=== PATIENT | male | born 1990 | race Caucasian/White ===

== ENCOUNTER 2023-07-13 08:32 | Outpatient (CLI) | payer OTHER, SELFPAY ==
--- NOTE | 2023-07-30 19:07 | WPDSLEEPSTUD ---
Sleep Study Date of Study: 07/13/23 Ordering Provider: JOSIE Garcia Interpreting Physician: Constanza Hussein MD Sleep Study Type: Polysomnogram Height: 1.73 m Weight: 63.503 kg Body Mass Index: 21.2 Neck Circumference (inches): 15 [place]: 6 Reason for Sleep Study ?insomnia, elevated blood pressure, anxiety Sleep History Clayton Bedolla is a 33-year-old man with difficulties getting to sleep and staying asleep. 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 He lives there a few months and did not have any issues until July when he started to have panic attacks, insomnia and elevated blood pressure. His anxiety is now controlled and he has not had a panic attack for quite some time. Blood pressure is also controlled. However his sleep has not returned to normal. He started buspirone for anxiety but had GI side effects so he quit taking it. He is only sleeping 2-5 hours per night and he is constantly tired. He is currently taking trazodone which helps him get to sleep but he does not stay asleep. He never awakens from sleep feeling short of breath. He never wakes at night with heartburn, belching or coughing.??He never snores, never snores loudly enough that others complain. He frequently has trouble sleeping when he has a cold. He never wakes up gasping for breath during the night. He never has breathing problems at night observed by others. He rarely sweats excessively at night. He rarely notices his heart pounding or beating irregularly during the night. He never falls asleep during the day. He never falls asleep involuntarily, never falls asleep while driving. He never experiences loss of muscle tone with strong emotion. 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 He never feels paralyzed on waking or falling asleep. He never experiences vivid dreams upon waking or falling asleep. He never feels afraid of going to sleep. He never has nightmares. He never recalls his dreams. He frequently has thoughts racing through his mind. He never feels sad or depressed. He frequently feels anxiety. He never notices parts of his body jerk. He never kicks during the night. He never feels crawling or aching feelings in his legs. He never feels leg pain at night. He rarely has morning jaw pain, rarely grinds his teeth at night. He occasional feels bothered by pain during the day, never awakened by pain during the night. He occasionally wakes up feeling stiff in the morning, and he frequently wakes feeling sore or achy. He occasionally awakens with pain in his neck, spine, or joints. Normal bedtime is 9:00 p.m., falling asleep within 15 minutes using trazodone but without trazodone it may take hours for him to fall asleep. He typically wakes once during the night. While awake he may lie in bed and read. Once he awakens at night he is not able to return to sleep. His normal wake time is 5:00 a.m.. He estimates getting between 2 and 5 hours of sleep at night. On weekends, his bedtime is 1 hour later, 9:00 p.m. and his wake time is till 5:00 a.m.. He does not take naps in the afternoon or evening. A short nap is not refreshing. He is usually drowsy for 3 hours after waking. Habits:??Tobacco:never smoker Caffeine: none Alcohol: less than 1 on average per day Recreational substances: none PMFSH Past Medical History Medical History Anxiety Hypertension Surgical History Surgical History H/O wrist surgery History of elbow surgery Family History Family History Grandparent Family history of lung cancer Social History Social History Smoking status: Never smo
[2023-08-02 10:40] VITALS: BMI 21.2
== END 2023-07-14 07:04 | disposition home or self-care (01) ==
LOC: ANHCSM 08:34
PROVIDERS: PCP Internal Medicine; Visit Provider Physician Assistant
DX: G47.9 Sleep disorder, unspecified (principal); G47.10 Hypersomnia, unspecified; F39 Unspecified mood [affective] disorder
CPT/HCPCS: 95810

== ENCOUNTER 2023-10-12 08:20 | Outpatient (CLI) | payer OTHER, SELFPAY ==
--- NOTE | ~2023-10-12 | XR_ITS ---
XR wrist RT min 3V Ordering provider: Alexis Mcdowell MD History: . right forearm/wrist mass and hardware eval, PAIN X 3 YEARS . Comparison: None. FINDINGS: BONES: No acute fracture or dislocation. No definite scaphoid fracture. Postoperative changes in the distal right radius. Old fracture in the styloid process. JOINT SPACES: Normal. SOFT TISSUES: Normal. IMPRESSION: No acute osseous abnormality right wrist. Reviewed, dictated and finalized at location A.
== END 2023-10-12 08:21 | disposition home or self-care (01) ==
LOC: ANHIMG 08:25
PROVIDERS: PCP Internal Medicine; Visit Provider Plastic Surgery
DX: M67.40 Ganglion, unspecified site (principal)
CPT/HCPCS: 73110

== ENCOUNTER 2023-10-21 15:57 | Outpatient (CLI) | payer OTHER, SELFPAY ==
--- NOTE | ~2023-10-21 | US_ITS ---
EXAMINATION: US soft tissue UE RT DATE: 10/21/2023 16:48 INDICATION: eval fright volar wrist mass for ganglion vs other . TECHNIQUE: Grayscale and Doppler ultrasound images of the right] upper extremity soft tissues were ob tained. COMPARISON: None. FINDINGS: The area of clinical concern in the right anterior wrist was sonographically interrogated, revealing no solid or cystic mass. IMPRESSION: No abnormality detected in the area of clinical concern. Reviewed, dictated and finalized at location K.
== END 2023-10-21 15:58 | disposition home or self-care (01) ==
LOC: ANHIMG 15:58
PROVIDERS: PCP Internal Medicine; Visit Provider Plastic Surgery
DX: M67.40 Ganglion, unspecified site (principal)
CPT/HCPCS: 76882

== ENCOUNTER 2023-11-29 14:45 | Outpatient (CLI) | payer OTHER, SELFPAY ==
--- NOTE | ~2023-11-29 | MR_ITS ---
EXAMINATION: MR wrist RT wo/w con DATE: 11/29/2023 15:57 INDICATION: Right wrist mass versus ganglion TECHNIQUE: Magnetic resonance imaging (MRI) of the right wrist was performed without and with 14 mL M ultihance intravenous contrast. Sequences performed include sagittal PD-weighted FSE, axial and sagit paula T1-weighted FSE, axial, sagittal and coronal fluid sensitive FSE STIR, axial T1-weighted FS FSE a nd postcontrast axial, sagittal and coronal T1-weighted FS FSE. COMPARISON: Radiographs dated 10/12/23 and ultrasound dated 10/21/2023 FINDINGS: There is metallic magnetic field artifact associated with volar T plate and screw fixation. This obsc ures the immediately adjacent bone and soft tissues including the scapholunate and lunotriquetral lig aments as well as portion of the triangular fibrocartilage complex. There is mild radial displacement of a chronic nonunited ulnar styloid avulsion fracture fragment. Normal marrow signal. No acute frac ture, erosions, avascular necrosis or pathologic marrow replacing process. Joint spaces are normal. V isualized portion of the flexor and extensor tendons are normal with no evident tendinopathy, tear or associated tenosynovitis. Carpal tunnel and Guyon's canal are unremarkable. The marker indicating th e region of concern is located along the radial/volar side of the wrist and distal most forearm. This immediately overlies the normal-appearing flexor carpi radialis tendon and the median nerve which ar e also seen at the region of concern on the prior ultrasound. No abnormal masses or fluid collections identified. No abnormally enhancing lesions identified however evaluation is limited by poor and het erogeneous fat saturation resulting from the magnetic field artifact. IMPRESSION: 1. No abnormal masses or fluid collections identified at the region of concern which immediately over lies the flexor carpi radialis and median nerve at the distalmost forearm. Evaluation is somewhat burciaga ited by metallic magnetic field artifact related to a prior volar T plate and screw fixation of the d istal radius. 2. Mild radial displacement chronic nonunited ulnar styloid avulsion fracture fragment. Reviewed, dictated and finalized at location A. IMPRESSION: 1. No abnormal masses or fluid collections identified at the region of concern which immediately overlies the flexor carpi radialis and median nerve at the di stalmost forearm. Evaluation is somewhat limited by metallic magnetic field art ifact related to a prior volar T plate and screw fixation of the distal radius. 2. Mild radial displacement chronic nonunited ulnar styloid avulsion fracture f ragment.
== END 2023-11-29 14:46 | disposition home or self-care (01) ==
LOC: MICIMG 14:46
PROVIDERS: PCP Plastic Surgery; Visit Provider Plastic Surgery
DX: M25.831 Other specified joint disorders, right wrist (principal)
CPT/HCPCS: 73223; A9577

== ENCOUNTER 2024-01-13 05:50 | Day surgery (SDC) | payer OTHER, SELFPAY ==
[2024-01-07 10:15] VITALS: BMI 23.4
--- NOTE | ~2024-01-13 | XR_ITS ---
INTRAOPERATIVE FLUOROSCOPY: CLINICAL HISTORY: 33 years old Male; HARDWARE REMOVAL RIGHT RADIUS PROCEDURE COMMENTS: Limited intraoperative fluoroscopy of the right wrist was performed. DOSE AREA PRODUCT: 0.4 Gy-cm2 FLUOROSCOPY TIME: 6 seconds FINDINGS/IMPRESSION: Please refer to operative note for further details. Reviewed, dictated and finalized at location A. E SUPERINTENDENT
[2024-01-13 06:26] VITALS: BMI 24.7
[2024-01-13 06:27] VITALS: BP 142/82; PULSE 65; RESP 16; TEMP 37; O2SAT 100
--- NOTE | 2024-01-13 06:39 | WPDANESEPPF ---
Anes - Initial Pre Proc Eval Procedure: Operation Date: 01/13/24 07:30 Proposed Procedures p Hardware Removal Right Radius - Alexis Mcdowell MD Date/Time: 01/13/24 06:39 Surgeon: Alexis Mcdowell MD Pre Op Diagnosis: History of Fracture Right Radius Patient Data Age: 33 Gender: M Height: 1.73 m Weight: 74 kg Last Vital Signs Temp 37.0 C 01/13/24 06:27 Pulse 65 01/13/24 06:27 Resp 16 01/13/24 06:27 BP 142/82 H 01/13/24 06:27 Pulse Ox 100 01/13/24 06:27 O2 Del Method Room Air 01/13/24 06:27 Allergies Allergy/AdvReac Type Severity Reaction Status Date / Time primaquine AdvReac Intermediate Nausea and Verified 01/13/24 06:16 Vomiting Home Medications Medication Instructions Recorded Confirmed Type No Home Medications 09/14/23 01/13/24 History Patient hx anesthesia problems: none Family hx anesthesia problems: none Results Review: All pre-operative results and documents have been reviewed as part of the pre-operative evaluation. [facility] Past Medical History Medical History (Updated 01/13/24 @ 07:23 by David Matthews DO) Anxiety Panic attack Surgical History Surgical History H/O wrist surgery History of elbow surgery Family History Family History Grandparent Family history of lung cancer Social History Social History Smoking status: Never smoker Second hand tobacco smoke exposure: No Alcohol intake: current Alcohol use details: OCCASSIONAL Substance use: never Substance use type: does not use Lack of Transportation: No Lack of Food: Never True Current Housing: I Have Housing Concerned About Future Housing: No Difficulty Paying Gas/Electric Bills: No Difficulty Paying for Meds: No Currently Unemployed: No Education: Bachelor's Degree Difficulty w/ Childcare or Family Care: No Living arrangements: alone Spiritual care concerns: No Anes - Eval Final PreProcedure Day of Procedure 11/14/24 06:39 Patient weight: normal Heart: regular rate and rhythm Lungs: clear to auscultation and normal air movement Airway: Mallampati scale class II Neurological: alert and oriented Last oral intake: >/= 8 hours ASA classification: II Emergent: no Anesthetic plan: proceed Anesthesia type and monitoring: general GIVS and standard monitoring Results Review: All pre-operative results and documents have been reviewed as part of the pre-operative evaluation. Informed Consent: The patient's anesthetic plan and its attendant risks and benefits were discussed with the patient/family/POA. Questions were solicited and answers provided to the satisfaction of the patient/family/POA.
[2024-01-13] MEDS: LACTATED RINGERS 1,000 ML 30 ML IV CONT (06:43)
--- NOTE | 2024-01-13 07:05 | WPDHPUPDATE1 ---
History and Physical Update Update Date/Time: 01/13/24 07:05 Patient seen and examined in pre-operative holding area. No interval change in medical history or symptoms. Patient recalls previous discussion of benefits and alternatives to procedure. Continues to desire to proceed with removal right distal radius hardware. Reviewed procedure, post-op expectations and risks including but not limited to bleeding, infection, injury to tendon/nerve/vessel, decreased hand function, stiffness, RSD, no change or worsening of symptoms. I discussed the possible use of assistants and their participation in the case. Patient stated understanding and signed the consent form wishing to proceed.
--- NOTE | 2024-01-13 07:05 | W.PM.PROC2 ---
Procedure Note - Detailed Date of Procedure 01/13/24 Pre-op Diagnosis History of Fracture Right Radius Post-op Diagnosis Same Procedure Performed right distal radius hardware removal and scar revision Surgeon Alexis Mcdowell MD Outside Dealer Sales Representative angelita moscoso pa-c Anesthesia MAC Description of Procedure INFORMED CONSENT: The patient was seen and examined and marked in the pre-op area.? The patient signed the consent form. PROCEDURE IN DETAIL:The patient taken back to OR on the stretcher in supine position. Time out performed with anesthesia, surgeon and staff agreeing on patient's name site and surgery to be performed SCDs were placed on the lower extremities and inflated. A tourniquet was placed on {right} upper extremity and antibiotics given IV After anesthesia administered sedation I injected {10}cc 1%lido with epi and 0.5% marcaine plain at the operative site The?{right upper extremity}?was prepped and draped in sterile fashion the??{right upper extremity} was? exsanguinated with Esmarch bandage and tourniquet inflated to 250mmHg I proceeded with making an ellptical incision around the patient's widened atrophic right volar wrist scar through skin and dermis with a 15 blade scalpel. The full-thickness scar was excised sharply. Using Littler scissors I spread down to the FCR tendon. This was retracted ulnarly. I made incision in the floor of the SC are sheath in standard Errol approach. The radial artery was protected and retracted radially throughout the procedure. I proceeded with dissection releasing scar tissue and remnant of pronator quadratus until the distal radius plate was exposed. I completed exposure of the plate and then using the universal hardware set I identified the appropriate screwdriver (synthes) and removed the plate and screws. Confirmation of hardware removal was done with mini C-arm. No masses cysts or significant abnormalities were identified. Tendons appeared normal without fraying and the druj and wrist was stable with full ROM. I irrigated with normal saline. I was unable to repair pronator quadratus given amount of previous scar tissue and retraciton. I excised excess skin on the proximal and distal ends of the incision to remove small dog ears. 3-0 Vicryl was used for dermis. 4-0 Monocryl was used for subcuticular closure. Length of closure was 7cm A dressing of Dermabond, 4x4, elina, and a volar splint was applied for patient safety, security, and comfort and secured with an tomasa bandage after the tourniquet was let down noting the hand was warm and well perfused. The patient was then awaken from anesthesia and transferred to the recovery room in stable condition.? Complications - none EBL- 0cc Disposition - home in stable conditions Angelita Moscoso PA-C was essential for positioning, retraction, fluoro, closure and dressing placement [facility] Billing Surgery - Charge Forward: Surgery Billing ([id number] for angelita)
[2024-01-13] MEDS: ceFAZolin SODIUM 2 GM/20 ML SW SYRINGE IV PUSH (07:27)
[2024-01-13] MEDS: LIDO 1%/EPINEPHRINE 1:100,000 10 ML VIAL 5 ML INFILTRATE (07:56)
[2024-01-13 08:22] VITALS: BP 117/67; PULSE 70; RESP 14; O2SAT 97
[2024-01-13 08:50] VITALS: BP 133/84; PULSE 62; RESP 18; O2SAT 96
[2024-01-13] MEDS: oxyCODONE HCL (*CRX) 5 MG TAB IR PO (08:51)
[2024-01-13 09:20] VITALS: BP 124/88; PULSE 58; RESP 18; O2SAT 97
--- NOTE | 2024-01-13 12:58 | WPDANESPN ---
Anes - Prog Note Post-Op Date/Time: 01/13/24 12:58 Cardiovascular status: normal Respiratory status: normal Airway patency: baseline Mental status: baseline Post-Op hydration status: normal Vital Signs: Last Vital Signs Temp 37.0 C 01/13/24 06:27 Pulse 58 L 01/13/24 09:20 Resp 18 01/13/24 09:20 BP 124/88 01/13/24 09:20 Pulse Ox 97 01/13/24 09:20 O2 Del Method Room Air 01/13/24 09:20 Pain Score (VAS): 1 I/O: Intake & Output 01/12/24 01/13/24 01/13/24 23:59 07:59 15:59 Intake Total 200 Balance 200 Post-procedural complaints: none Patient Feedback: Patient satisfied with anesthetic care. Other Findings: Patient vital signs back to baseline. Patient denies nausea and vomiting. Patient's pain under control. Patient OK for discharge.
== END 2024-01-13 09:45 | disposition home or self-care (01) ==
PROVIDERS: PCP Internal Medicine; Visit Provider Plastic Surgery
PROC: (CPT 25447; principal; 2024-01-13 07:30)
DX: T84.192A Other mechanical complication of internal fixation device of bone of right forearm, initial encounter (principal)
CPT/HCPCS: 20680; 13121; 99199

== ENCOUNTER 2024-01-22 14:21 | Emergency (ER) | payer OTHER, SELFPAY ==
[2024-01-22 14:40] VITALS: BP 124/78; PULSE 72; RESP 18; TEMP 36.8; O2SAT 99
--- NOTE | 2024-01-22 18:19 | ED.SKABFB ---
HPI - Skin/Abscess/Foreign Bdy General Chief complaint: Skin/Abscess/Foreign Body Stated complaint: Rash Time Seen by Provider: 01/22/24 14:48 Source: patient, RN notes reviewed and old records reviewed Mode of arrival: ambulatory Limitations: no limitations History of Present Illness HPI narrative: Patient presents today complaining of fluid-filled bumps and drainage on his right forearm surrounding of a surgical incision site. Patient was taken to the OR for hardware removal and scar revision by Dr. Mcdowell on 01/13/24. Over the past few days, this rash has developed. It is pruritic and draining onto his dressing. Patient has not been able to get a hold of his doctor and wanted to come in today for evaluation. He has not tried any [id number] treatment prior to arrival. Related Data Allergies Allergy/AdvReac Type Severity Reaction Status Date / Time primaquine AdvReac Intermediate Nausea and Verified 01/13/24 06:16 Vomiting Review of Systems Review of Systems: CONSTITUTIONAL: Denies body aches, fever, chills, or sweats. EYES: Denies visual changes, redness, or discharge. ENT: Denies rhinorrhea, congestion, sore throat, or otalgia. CARDIOVASCULAR: Denies chest pain, palpitations, or edema. RESPIRATORY: Denies cough or dyspnea. GASTROINTESTINAL: Denies abdominal pain, nausea, vomiting, or diarrhea. GENITOURINARY: Denies dysuria or hematuria. SKIN: +Pruritic rash with drainage to the right forearm surgical site MUSCULOSKELETAL: Denies back pain, joint pain, or myalgia. NEUROLOGIC: Denies headache, numbness, tingling, or weakness. PSYCH: Denies depression or anxiety. [facility] Past Medical History Medical History Anxiety Panic attack Surgical History Surgical History H/O wrist surgery History of elbow surgery Family History Family History Grandparent Family history of lung cancer Social History Social History Smoking status: Never smoker Second hand tobacco smoke exposure: No Alcohol intake: current Alcohol use details: OCCASSIONAL Substance use: never Substance use type: does not use Lack of Transportation: No Lack of Food: Never True Current Housing: I Have Housing Concerned About Future Housing: No Difficulty Paying Gas/Electric Bills: No Difficulty Paying for Meds: No Currently Unemployed: No Education: Bachelor's Degree Difficulty w/ Childcare or Family Care: No Living arrangements: alone Spiritual care concerns: No Comments At time of signature, I have reviewed and agree with nursing past medical, surgical, social and family history unless otherwise noted. Please see nursing chart for further information. There is no relevant family history pertinent to the presenting complaint Exam Narrative: GENERAL: Well-appearing, well-nourished, and in no acute distress. HEAD: Normocephalic, atraumatic. EYES: EOMI. No redness or drainage. Conjunctivae normal. ENT: Mucous membranes pink and moist. NECK: Normal AROM. CHEST: No respiratory distress. EXTREMITIES: Surgical incision to the volar aspect of the right forearm. Surrounding the incision is erythema that extends proximally, almost to the antecubital fossa. No induration noted. Around the incision there is a large area of tiny vesicles filled with dark yellow fluid with some scant honey crusting. No dehiscence of the wound noted. No purulent discharge from the incision site noted. Distal sensation intact. Capillary refill normal. SKIN: Warm. Capillary refill normal. Normal skin turgor. NEURO: No focal deficits. Alert and oriented x3. Gait steady. PSYCH: Normal affect. No signs of depression or anxiety. Course Course Level of Care: Express Care Visit Vital Signs Vital signs: Vital Signs Temperature 98.2 F 01/22/24 14:40 Pulse Rate 72 01/22/24 14:40 Respiratory Rate 18 01/22/24 14:40 Blood Pressure 124/78 01/22/24 14:40 Pulse Oximetry 99 01/22/24 14:40 Oxygen Delivery Room Air 01/22/24 14:40 Temperature 98.2 F 01/22/24 14:40 Pulse Rate 72 01/22/24 14:40 Respiratory Rate 18 01/22/24 14:40 Blood Pressure 124/78 01/22/24 14:40 Pulse Oximetry 99 01/22/24 14:40 Oxygen Delivery Room Air 01/22/24 14:40 Reviewed MDM - Skin/Abscess/Foreign Bdy MDM Narrative Medical decision making narrative: Patient has been dressing his wound with a gauze dressing that is adhesive around the edges. This does not seem to be causing any irritation or dermatitis. He does seem to have cellulitis that is extending proximally on the arm as well as some probable impetigo around the surgical site. He will be started on Keflex. He will continue with his wound cleaning as directed by his surgeon. He has an appointment scheduled with his physician in 3 days, but has been instructed to call on Wednesday. Differential Diagnosis Differential diagnosis: Likely abscess of skin or subcutaneous tissue, cellulitis, impetigo and contact dermatitis Critical Care Time Critical Care Time Critical Care Time: No Discharge Plan Discharge Clinical Impression: Impetigo Patient Disposition: Home, Self-Care Condition: Stable Instructions: Antibiotic Form, Impetigo (DC) Additional Instructions: Please start the Keflex and take as directed. Wash for surgical site with soap and water daily and keep covered with a nonadherent dressing. Please call your surgeon on Wednesday to notify them of this infection. Taking antihistamine for itching such as Zyrtec, Claritin, Vira, or Benadryl. Take Tylenol or ibuprofen for pain if needed. Your blood pressure was elevated above 120/80 today at Urgent Care. This puts you above the threshold for follow up. Please schedule a followup visit with your personal physician as soon as possible, for further evaluation and treatment. Even blood pressure exceeding 120/80 may indicate pre-hypertension. Prescriptions: New cephalexin 500 mg capsule 500 mg PO Q6H 7 Days Qty: 28 0RF Follow-up/Referrals: Alexis Mcdowell MD [Physician] - Qasim,Paul San DO [Primary Care Provider] - Time of Disposition: 14:59
== END 2024-01-22 15:05 | disposition home or self-care (01) ==
PROVIDERS: Emergency Provider Nurse Practitioner; PCP Internal Medicine
DX: L01.00 Impetigo, unspecified (principal)
CPT/HCPCS: 99213; G0463

== ENCOUNTER 2024-05-29 12:30 | Outpatient (RCR) | payer OTHER, SELFPAY ==
--- NOTE | 2024-05-12 15:50 | OTOPEVAL1 ---
Assessment and note entered by GENTRY Spence/Bright, MASHA OT Evaluation Information 05/12/24 Assessment Status Evaluation Diagnosis M25.531 Pain in right wrist Subjective Information Patient underwent a right distal radius hardware removal Dec 2023. Initial wrist fx was 2010. He reports some difficulties with right hand use due to residual stiffness, weakness, and pain. He states he experiences difficulties with writing, pushing, and lifting. He is right handed. Assessment OT Clinical Summary Patient referred to OT with a decline in right UE/ hand use due to residual weakness and pain following right distal radius hardware removal. He presents with residual finger and wrist flexor tightness and gross weakness. Issued stretching and strengthening HEP, which he completes with excellent understanding. Discussed scar mobilization and scar care for which he is completing scar massage with silicone sheets. Plan to have the patient follow up in 3 weeks for HEP progression and re-eval for discharge. Plan of Care Interventions Therapeutic Exercise,Manual Therapy,Paraffin OT Services Indicated Yes Treatment Frequency and 1 follow up in 3 weeks Duration These treatments will address the objective and functional deficits as defined above. The patient will be advanced safely and appropriately in order for the patient to progress towards his/her prior level of function. Additional exercises will be introduced and as well as a comprehensive home exercise program upon discharge, if needed, ?to ensure carryover of functional gains achieved in the clinic. This treatment plan has been reviewed and agreement upon by the patient.
--- NOTE | 2024-05-12 15:51 | OPREHPOC ---
Outpatient Therapy Plan of Care This is a Multidisciplinary Plan of Care that may contain components documented by all disciplines (PT, OT, and ST.) OT Problem 1 OT Problem #1 Knowledge Deficit OT Goal 1 Goal / Goal Update Patient to be independent with instructed materials. Target Visit 2 OT Problem 2 OT Problem #2 Impaired Flexibility OT Goal 1 Goal / Goal Update Pt to improve functional flexibility for ADLs as demonstrated by: Increasing right wrist extension to 75 deg. Target Visit 2 OT Problem 3 OT Problem #3 Impaired Strength OT Goal 1 Goal / Goal Update Pt to improve functional merchandising manager/pinch strength for ADLs as demonstrated by: - increasing (R) merchandising manager strength to 76 lbs. - increasing (R) lateral pinch to 14 lbs. - increasing (R) palmar pinch 12 lbs. Target Visit 2
--- NOTE | 2024-05-29 13:15 | OTOPDC ---
Assessment and note entered by Adebayo Cheema, OTR/L, CHT OT D/C Summary 05/29/24 Diagnosis M25.531 Pain in right wrist Subjective Information Patient reports progress in the last 2 weeks noting improvements with his flexibility and strength. He reports he is having an easier time writing and pushing himself up from a chair. He has gotten back into being able to do 50 push ups. He reports he is getting stronger, but does note that he still has room to improve. He reports good compliance with his HEP. 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 Assessment OT Clinical Summary Patient referred to OT with a decline in right UE/ hand use due to residual weakness and pain following right distal radius hardware removal. He has been completing stretching/strengthening HEP x2 weeks and returns today for re-assessment. 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 Reviewed all materials and upgraded to the next strongest putty. D/C OT at this time. Patient demonstrates excellent understanding of all materials and is in agreement with D/C. Plan of Care OT Services Indicated No
== END 2024-05-29 14:52 | disposition home or self-care (01) ==
LOC: ANHOT 12:30
PROVIDERS: PCP Internal Medicine; Visit Provider Plastic Surgery
DX: M25.531 Pain in right wrist (principal)
CPT/HCPCS: 97110; 97165

== ENCOUNTER 2024-10-03 00:46 | Day surgery (SDC) | payer OTHER, SELFPAY ==
[2024-09-14 15:04] VITALS: BMI 23.6
--- OUTSIDE RECORDS SUMMARY | 2024-10-03 00:48 | XMS_ITS | Clinical Summary ---
Author Organization [facility] Address [address] [place] [address] Care Team Providers Care Flap Maker Name Role Phone Unavailable Primary Care Provider Unavailabl e Source Comments [facility],non-owned Affiliates and Associated Physician Practices is amultiple site organization consisting of ambulatory clinics and hospital sitesin [place], [place], [place] and [place]. This disclosure is being madepursuant to the Care Everywhere program and may not contain all information available regarding this patient. 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 Gender Identity Not on file Sexual Orientation Not on file Plan of Treatment Health Maintenance Due Date Last Done Comments HIV SCREENING 05/27/2007 HEPATITIS C SCREENING 05/22/2010 DTAP/TDAP/TD VACCINES (1 - Tdap) 05/27/2011 HEPATITIS B VACCINE (1 of 3 - 19+ 3-dose series) 05/27/2011 HPV VACCINE (1 - 3-dose SCDM series) 05/27/2019 COVID-19 VACCINE (1 - 2023-2 5 season) 2023 DEPRESSION SCREENING 03/01/2024 INFLUENZA VACCINE (#1) 2024 ZOSTER VACCINE (1 of 2) 2042 HIB VACCINE Aged Out No longer eligi ble based on patient's age to complete this topic MENINGOCOCCAL (Group B) VACC INE SHARED DECISION-MAKING Aged Out No longer eligibl e based on patient's age to complete this topic MENINGOCOCCAL GROUPS A/C/Y/W VACCINE Aged Out No longer eligible b ased on patient's age to complete this topic PNEUMOCOCCAL VACCINE Aged Out No long er eligible based on patient's age to complete this topic
[2024-10-03 12:01] VITALS: BP 132/72; PULSE 71; RESP 18; TEMP 36.1; O2SAT 100; BMI 24.4
[2024-10-03] MEDS: LACTATED RINGERS 1,000 ML 150 ML IV CONT (12:10)
--- NOTE | 2024-10-03 12:39 | P.PNAN_ITS ---
Anes - Initial Pre Proc Eval Procedure: Operation Date: 10/03/24 13:30 Proposed Procedures p Esophagogastroduodenoscopy & Colonoscopy - Kevin Magana MD Date/Time: 10/03/24 12:39 Surgeon: Kevin Magana MD Pre Op Diagnosis: Abdominal distension (gaseous) Patient Data Age: 34 Gender: M Height: 1.75 m Weight: 75 kg Last Vital Signs Temp 36.1 C L 10/03/24 12:01 Pulse 71 10/03/24 12:01 Resp 18 10/03/24 12:01 BP 132/72 10/03/24 12:01 Pulse Ox 100 10/03/24 12:01 O2 Del Method Room Air 10/03/24 12:01 Allergies Allergy/AdvReac Type Severity Reaction Status Date / Time primaquine AdvReac Intermediate Nausea and Verified 10/03/24 11:59 Vomiting Home Medications ?Medication ?Instructions ?Recorded ?Confirmed ?Type dicyclomine 10 mg capsule See Rx Instructions .Route 09/29/24 10/03/24 Rx .COMPLEX #360 caps Patient hx anesthesia problems: none Family hx anesthesia problems: none Results Review: All pre-operative results and documents have been reviewed as part of the pre- operative evaluation. [facility] Past Medical History Medical History Anxiety Panic attack Surgical History Surgical History H/O wrist surgery History of elbow surgery Family History Family History Grandparent Family history of lung cancer Social History Social History Smoking status: Never smoker Second hand tobacco smoke exposure: No Alcohol intake: current Alcohol use details: OCCASSIONAL Substance use: never Substance use type: does not use Lack of Transportation: No Lack of Food: Never True Current Housing: I Have Housing Concerned About Future Housing: No Difficulty Paying Gas/Electric Bills: No Difficulty Paying for Meds: No Currently Unemployed: No Education: Bachelor's Degree Difficulty w/ Childcare or Family Care: No Living arrangements: alone Spiritual care concerns: No Anes - Eval Final PreProcedure Day of Procedure 10/03/24 12:39 Patient weight: normal Heart: regular rate and rhythm Lungs: clear to auscultation Airway: Mallampati scale class II Neurological: alert and oriented Last oral intake: >/= 8 hours ASA classification: II Emergent: no Anesthetic plan: proceed Anesthesia type and monitoring: general GIVS and standard monitoring Results Review: All pre-operative results and documents have been reviewed as part of the pre- operative evaluation. Informed Consent: The patient's anesthetic plan and its attendant risks and benefits were discussed with the patient/family/POA. Questions were solicited and answers provided to the satisfaction of the patient/family/POA.
--- NOTE | 2024-10-03 13:21 | SUR.OPER ---
EGD: start 1310, end 1315 Colonoscopy: start 1321, end 1331
--- NOTE | 2024-10-03 13:32 | S_PTH ---
PATIENT: Clayton Bedolla LOC: [facility]#:[id number] AGE/SX: 34/M ROOM: RE10/03/[address]: Kevin Magana MD : 1990 BED: DIS: 10/03/2024 SPEC #: [id number] RECD: 10/03/24 13:52 STATUS: AMADOR RESteffen #: [id number] DESIRE: 10/03/24 13:[address]: Kevin Magana DEPT: [facility] Surgical RECD BY: Delmis Rowell ENTERED: 10/03/24 13:52 SP TYPE: Surgical OTHR DR: Khalif Moctezuma DO Tissues: A - Gastric Biopsy B - Colon Biopsy C - Small Bowel Bx Procedures: Hematoxylin and Eosin Stain Gross and Microscopic Level 4
[2024-10-03 13:36] VITALS: BP 80/41; PULSE 61; RESP 19; O2SAT 97
[2024-10-03 13:46] VITALS: BP 91/50; PULSE 50; RESP 20; O2SAT 98
[2024-10-03 13:56] VITALS: BP 103/66; PULSE 49; RESP 24; O2SAT 100
[2024-10-03 14:06] VITALS: BP 120/81; PULSE 51; RESP 18; O2SAT 100
--- NOTE | 2024-10-04 10:50 | PM.HPGS ---
History of Present Illness History of Present Illness Consent: Risks, benefits, and alternatives have been discussed and questions answered. Patient agrees to proceed with procedure. Chief complaint: Abdominal distension (gaseous) Narrative: Clayton Bedolla is a 34 year old male here for egd and colonoscopy, here with bloating and loose stools Review of Systems Review of Systems: All systems reviewed & are unremarkable except as noted in HPI and below PMFSH Past Medical History Medical History Anxiety Panic attack Surgical History Surgical History H/O wrist surgery History of elbow surgery Family History Family History Grandparent Family history of lung cancer Social History Social History Smoking status: Never smoker Second hand tobacco smoke exposure: No Alcohol intake: current Alcohol use details: OCCASSIONAL Substance use: never Substance use type: does not use Lack of Transportation: No Lack of Food: Never True Current Housing: I Have Housing Concerned About Future Housing: No Difficulty Paying Gas/Electric Bills: No Difficulty Paying for Meds: No Currently Unemployed: No Education: Bachelor's Degree Difficulty w/ Childcare or Family Care: No Living arrangements: alone Spiritual care concerns: No Meds Home Medications and Allergies Home Medications ?Medication ?Instructions ?Recorded ?Confirmed ?Type dicyclomine 10 mg capsule See Rx Instructions .Route 09/29/24 10/03/24 Rx .COMPLEX #360 caps Allergies Allergy/AdvReac Type Severity Reaction Status Date / Time primaquine AdvReac Intermediate Nausea and Verified 10/03/24 11:59 Vomiting Vital Signs Vital Signs - 24 hr 10/03/24 12:01 10/03/24 13:36 10/03/24 13:46 Temperature 97 F L Pulse Rate 71 61 50 L Respiratory Rate 18 19 20 Blood Pressure 132/72 80/41 L 91/50 L Pulse Oximetry 100 97 98 Oxygen Delivery Room Air Room Air Room Air 10/03/24 13:56 10/03/24 14:06 Temperature Pulse Rate 49 L 51 L Respiratory Rate 24 H 18 Blood Pressure 103/66 120/81 Pulse Oximetry 100 100 Oxygen Delivery Room Air Room Air Exam Const: General: comfortable and no acute distress HENMT: Face/Nose/Sinus: Normal nares present Eyes: General: appearance normal, both eyes and all related structures Neck: Neck: no JVD Resp: Auscultation: clear to auscultation bilaterally Cardio: Rate: regular rate Rhythm: regular rhythm GI: Inspection: non-distended GI Palp: Yes Soft to palpation Skin: General skin exam: normal color Neuro: General: gait normal Speech: normal speech Extrem: General: normal to inspection Psych: Mental Status: mental status grossly normal Assessment and Plan Assessment and plan (1) Abdominal bloating: Code(s): R14.0 - Abdominal distension (gaseous) Status: Acute Assessment and Plan: egd (2) Change in bowel habits: Code(s): R19.4 - Change in bowel habit Status: Acute Assessment and Plan: colonoscopy
== END 2024-10-03 14:12 | disposition home or self-care (01) ==
PROVIDERS: PCP Internal Medicine; Referring Provider Nurse Practitioner; Visit Provider Internal Medicine Gastroenterology
PROC: 0DJ08ZZ Inspection of Upper Intestinal Tract, Via Natural or Artificial Opening Endoscopic (ICD-10-PCS; CPT 45378; principal; 2024-10-03 13:30)
DX: R19.7 Diarrhea, unspecified (principal); K29.50 Unspecified chronic gastritis without bleeding; R74.01 Elevation of levels of liver transaminase levels
CPT/HCPCS: 45380; 43239; 88305; J2003; J2704; J7120